=== PATIENT | male | born 1990 | race Caucasian/White ===

== ENCOUNTER 2021-09-08 12:32 | Emergency (ER) | payer OTHER ==
[~2021-09-08] VITALS: Ht 177.8 cm; Wt 77.1 kg
[2021-09-08 12:32] VITALS: BP_SYST 124
[2021-09-08 13:43] LABS: BASOPHILS % (AUTO) 0.5 % (0.0-2.0); EOSINOPHILS # (AUTO) 0.1 K/uL (0.0-0.4); EOSINOPHILS % (AUTO) 0.6 % (0.0-4.0); HEMATOCRIT 42.9 % (36-54); HEMOGLOBIN 14.8 g/dL (14.0-18.0); LYMPHOCYTES # (AUTO) 1.2 K/uL (1.0-5.5); LYMPHOCYTES % (AUTO) 12.7 % (20.5-51.5); MEAN CORPUSCULAR HEMOGLOBIN 29 pg (27-31); MEAN CORPUSCULAR HGB CONC 35 % (32-36); MEAN CORPUSCULAR VOLUME 85 fL (79.0-98.0); MONOCYTES # (AUTO) 0.6 K/uL (0.0-1.0); MONOCYTES % (AUTO) 6.7 % (1.7-9.3); NEUTROPHILS # (AUTO) 7.6 K/uL (1.8-7.7); NEUTROPHILS % (AUTO) 79.5 % (40.0-70.0); PLATELET COUNT (AUTO) 325 K/uL (130-430); RED BLOOD CELL COUNT(AUTO) 5.06 MIL/uL (4.2-6.2); WHITE BLOOD COUNT (AUTO) 9.6 K/uL (4.8-10.8)
[2021-09-08 13:59] LABS: CALCIUM 8.7 mg/dL (8.4-11.0); CREATININE 0.85 mg/dL (0.55-1.30)
[2021-09-08 14:04] LABS: ALBUMIN 3.9 g/dL (3.4-4.8); TOTAL BILIRUBIN 0.3 mg/dL (0.0-1.0)
[2021-09-08] MEDS ORDERED: ALPR0.25 PO (15:09)
== END 2021-09-08 15:45 | disposition home or self-care (01) ==
LOC: SED 12:32
DX: R06.4 Hyperventilation (principal); Z79.899 Other long term (current) drug therapy
CPT/HCPCS: 36415; 80053; 85025; 99283